=== PATIENT | male | born 1955 | race Two or more races ===

== ENCOUNTER 2018-07-24 14:19 | Outpatient (CLI) | payer OTHER ==
[~2018-07-24 14:19] MED LIST: DIOVAN160 M1 PO; TAMS0.4C PO
== END 2018-07-24 14:33 | disposition home or self-care (01) ==
LOC: SONOGRAMA 14:19
DX: S93.432A Sprain of tibiofibular ligament of left ankle, initial encounter (principal); M25.572 Pain in left ankle and joints of left foot

== ENCOUNTER 2018-07-26 10:07 | Outpatient (CLI) | payer OTHER | END 2018-07-26 15:35 | disposition home or self-care (01) | LOC: MRI 10:07 | DX: M79.641 Pain in right hand (principal) | CPT/HCPCS: 73221 ==